=== PATIENT | female | born 1985 | race African-American/Black ===

== ENCOUNTER 2019-07-24 20:08 | Emergency (ER) | payer MEDICAID ==
[~2019-07-24] VITALS: Ht 172.7 cm; Wt 53.5 kg
[2019-07-24 20:17] VITALS: Ht 172.7 cm; Wt 53.5 kg
[2019-07-24] MEDS ORDERED: MOBIC7.5 MG PO (20:18)
[2019-07-24] MEDS ORDERED: ACETAMINOPHEN325 MG PO (20:19)
[2019-07-24 20:35] LABS: APPEARANCE HAZY (CLEAR); COLOR DK YELLOW (YELLOW); GLUCOSE NEGATIVE (NEGATIVE); KETONE SMALL mg/dL (NEGATIVE); NITRITE NEGATIVE (NEGATIVE); PROTEIN 1+ mg/dL (NEGATIVE)
[2019-07-24 20:36] LABS: BILIRUBIN NEGATIVE (NEGATIVE)
[2019-07-24 20:37] LABS: RED CELLS - URINE 25-50 /hpf (0-5); WHITE CELLS - URINE 0-5 /hpf (NEGATIVE)
[2019-07-24 20:39] LABS: EPITHELIAL CELLS 0-5 /hpf (0-5)
[2019-07-24 20:40] LABS: BACTERIA FEW /hpf (NEGATIVE)
[2019-07-24 20:42] LABS: HCG URINE NEGATIVE (NEGATIVE)
[2019-07-24 20:54] LABS: BASOPHILS 0.2 % (0-2); EOSINOPHILS 1.7 % (0-7); HEMATOCRIT 38.8 % (36.0-48.0); HEMOGLOBIN 12.9 g/dL (12-16); IMMATURE GRANULOCYTES 0.2 % (0-5); LYMPHOCYTES 35.5 % (15-50); MCHC 33.2 g/dL (31.0-37.0); MCV 93.3 fL (80.0-100.0); MEAN PLATELET VOLUME 8.5 fL (7.4-10.4); MONOCYTES 14.6 % (2-11); NEUTROPHILS 47.8 % (40-80); PLATELET COUNT 401 10x3/uL (130-400); RBC 4.16 10x6/uL (4.00-5.40); RDW 13.7 % (11.5-14.5); WBC 6.6 10x3/uL (4.8-10.8)
[2019-07-24 21:17] LABS: ANION GAP 13.5 mmol/L (8-16); CALCIUM 8.7 mg/dL (8.5-10.1); CARBON DIOXIDE 25.1 mmol/L (21.0-32.0); CREATININE - SERUM 1.1 mg/dL (0.6-1.3); POTASSIUM - SERUM 3.6 mmol/L (3.5-5.1)
[2019-07-24 21:23] LABS: ACETAMINOPHEN 4.8 ug/mL (10.0-30.0); ALBUMIN 3.7 g/dL (3.4-5.0); BILIRUBIN - TOTAL 0.38 mg/dL (0.2-1.3); PROTEIN - SERUM 7.4 g/dL (6.4-8.2)
[2019-07-24] MEDS ORDERED: MIRALAX17 GM PO (22:33)
[2019-07-24] MEDS ORDERED: ROBAXIN500 MG PO (22:33)
[2019-07-24 22:58] VITALS: BP 111/65
== END 2019-07-24 22:58 | disposition home or self-care (01) ==
LOC: D.ER 20:08
PROVIDERS: Emergency Medicine
DX: K59.00 Constipation, unspecified (principal); R10.2 Pelvic and perineal pain

== ENCOUNTER 2019-09-28 16:41 | Emergency (ER) | payer MEDICAID ==
[~2019-09-28] VITALS: Ht 142.2 cm; Wt 50.0 kg
[~2019-09-28 16:41] MED LIST: ACETAMINOPHEN325 MG PO; MIRALAX17 GM PO; MOBIC7.5 MG PO; ROBAXIN500 MG PO
[2019-09-28 17:26] VITALS: Ht 142.2 cm; Wt 50.0 kg
[2019-09-28] MEDS ORDERED: VOLTAREN75 MG PO (18:36)
[2019-09-28 18:54] VITALS: BP 127/66
== END 2019-09-28 18:54 | disposition home or self-care (01) ==
LOC: D.ER 16:41
DX: S99.911A Unspecified injury of right ankle, initial encounter (principal); M79.641 Pain in right hand; W22.8XXA Striking against or struck by other objects, initial encounter; Y93.9 Activity, unspecified; Y92.9 Unspecified place or not applicable

== ENCOUNTER 2020-06-27 20:19 | Emergency (ER) | payer MEDICAID ==
[~2020-06-27] VITALS: Ht 142.2 cm; Wt 50.0 kg
[~2020-06-27 20:19] MED LIST changes: +VOLTAREN75 MG PO
[2020-06-27 20:33] VITALS: BP 114/66; Ht 142.2 cm; Wt 50.0 kg
[2020-06-27] MEDS ORDERED: HYDROCORTISONE30 G9 TOPICAL (21:05)
[2020-06-27] MEDS ORDERED: COLACE100 MG PO (21:05)
== END 2020-06-27 21:20 | disposition home or self-care (01) ==
LOC: D.ER 20:19
DX: K64.8 Other hemorrhoids (principal); K64.4 Residual hemorrhoidal skin tags

== ENCOUNTER 2020-12-03 02:39 | Emergency (ER) | payer MEDICAID ==
[~2020-12-03] VITALS: Ht 142.2 cm; Wt 50.0 kg
[~2020-12-03 02:39] MED LIST changes: +COLACE100 MG PO; +HYDROCORTISONE30 G9 TOPICAL
[2020-12-03 02:44] VITALS: Ht 142.2 cm; Wt 50.0 kg
[2020-12-03] MEDS ORDERED: HYDROCODON-ACE1 EA10 PO (03:03)
== END 2020-12-03 03:23 | disposition home or self-care (01) ==
LOC: D.ER 02:39
DX: K08.89 Other specified disorders of teeth and supporting structures (principal); G89.18 Other acute postprocedural pain